=== PATIENT | male | born 1985 | race Caucasian/White ===

== ENCOUNTER 2017-05-19 10:23 | Emergency (ER) | payer SELFPAY ==
[~2017-05-19] VITALS: Ht 175.3 cm; Wt 116.2 kg
[~2017-05-19 10:23] MED LIST: AMLODIPINE BESYL5 MG PO; CALCIUM ACETAT667 MG PO; OXYCODONE HCL5 MG PO
[2017-05-19 11:51] LABS: HEMATOCRIT 49.2 % (38.0-50.0); MCHC 34.8 G/DL (30.0-36.0); MCV 86.3 FL (86-99); MEAN PLAT.VOLUME 9.4 uM^3 (9.0-12.4); PLATELET COUNT 356 K/uL (156-360); RBC DIS.WIDTH-CV 12.4 % (11.8-14.6); RBC DIS.WIDTH-SD 39.1 % (39-53); WHITE BLOOD COUNT 11.1 K/uL (4.1-10.2)
[2017-05-19 12:03] LABS: CHLORIDE 102 mEq/L (99-109); POTASSIUM 4.4 mEq/L (3.7-5.4); SODIUM 137 mEq/L (136-147)
[2017-05-19 12:05] LABS: GLUCOSE 113 mg/dL (70-99)
[2017-05-19 12:06] LABS: ANION GAP 12 MEQ/L (2-14)
[2017-05-19 12:07] LABS: TOTAL BILIRUBIN 1.1 mg/dL (0.0-1.0)
[2017-05-19 12:08] LABS: ALKALINE PHOSPHATASE 86 IU/L (3-129)
[2017-05-19 12:09] LABS: GFR ESTIMATE (CALCULATED) > 59 mL/min/
[2017-05-19 12:10] LABS: UREA NITROGEN (BUN) 22 mg/dL (9-23)
[2017-05-19 12:13] LABS: BILIRUBIN NEGATIVE; BLOOD NEGATIVE; COLOR YELLOW ((YELLOW)); GLUCOSE (STRIP) NEGATIVE; KETONES NEGATIVE; LEUKOCYTES NEGATIVE; NITRITE NEGATIVE; PROTEIN (STRIP) 30; SPECIFIC GRAVITY 1.026 (1.000-1.030); UROBILINOGEN 0.2 MG/DL (0.2-1.0)
[2017-05-19 12:15] LABS: ADD MIUA? NO; UCUL ADDED? NO
[2017-05-19 13:22] LABS: CREATINE KINASE 265 IU/L (1-294); TOTAL CK 265 IU/L (1-294)
[2017-05-19 13:24] LABS: CK-MB 1.4 ng/mL (0.0-4.9)
[2017-05-19] MEDS ORDERED: VIBRAMYCIN100 MG PO (15:15)
[2017-05-19] MEDS ORDERED: CORTIZONE-10 PL57 GM TP (15:15)
[2017-05-19] MEDS ORDERED: BENADRYL50 MG PO (15:15)
[2017-05-19 15:44] VITALS: BP 135/84
[2017-05-20 09:44] LABS: LYME DISEASE SEROLOGY SCREEN NEGATIVE (NEGATIVE)
== END 2017-05-19 15:46 | disposition home or self-care (01) ==
LOC: EME 10:23
PROVIDERS: Physician Assistant
DX: R21 Rash and other nonspecific skin eruption (principal); M62.838 Other muscle spasm; R11.0 Nausea; R05 Cough; R53.1 Weakness; L29.9 Pruritus, unspecified; R82.99 Other abnormal findings in urine; M54.9 Dorsalgia, unspecified; Z88.0 Allergy status to penicillin; F17.200 Nicotine dependence, unspecified, uncomplicated
CPT/HCPCS: 74176; 76705; 80053; 81003; 82550; 82553; 85027; 86618; 99281; 99284; J1200; J7030